=== PATIENT | female | born 1940 | race Two or more races ===

== ENCOUNTER → 2019-01-18 | Emergency (ER) | payer OTHER ==
[~2019-01-18] VITALS: Ht 170.2 cm; Wt 63.5 kg
[~2019-01-18] MED LIST: DIOVAN40 MG; GLIPIZIDE ER10 MG; GLUCOTROL XL5 MG; TOPROL XL100 M1
== END | disposition designated cancer center or children's hospital (05) ==
LOC: ER 11:26
DX: S02.32XA Fracture of orbital floor, left side, initial encounter for closed fracture (principal); S06.6X9A Traumatic subarachnoid hemorrhage with loss of consciousness of unspecified duration, initial encounter; S02.40DA Maxillary fracture, left side, initial encounter for closed fracture; S01.122A Laceration with foreign body of left eyelid and periocular area, initial encounter; W18.09XA Striking against other object with subsequent fall, initial encounter; Y93.89 Activity, other specified; Y92.098 Other place in other non-institutional residence as the place of occurrence of the external cause; Y99.8 Other external cause status